=== PATIENT | male | born 1960 | race Caucasian/White ===

== ENCOUNTER 2020-05-10 05:45 | Day surgery (SDC) | payer OTHER ==
[2020-05-02 15:17] LABS: BASOPHILS # (AUTO) 0.1 X10'3 (0-0.2); EOSINOPHILS # (AUTO) 0.2 X10'3 (0-0.9); EOSINOPHILS % (AUTO) 2.9 % (0-6); LYMPHOCYTES # (AUTO) 1.6 X10'3 (1.1-4.8); LYMPHOCYTES % (AUTO) 24.9 % (21-51); MEAN CORPUSCULAR HGB CONC 34.2 g/dL (33.0-36.5); MEAN CORPUSCULAR VOLUME 96.3 FL (78-98); MEAN PLATELET VOLUME 8.3 FL (7.4-10.4); MONOCYTES # (AUTO) 0.8 X10'3 (0-0.9); MONOCYTES % (AUTO) 11.7 % (2-12); NEUTROPHILS # (AUTO) 3.9 X10'3 (1.8-7.7); NEUTROPHILS % (AUTO) 59.5 % (42-75); PRE OP HEMATOCRIT 46.8 % (42.0-52.0); PRE OP PLATELET COUNT 272 X10'3 (140-440); RED BLOOD COUNT 4.86 X10'6 (4.70-6.10); RED CELL DISTRIBUTION WIDTH 13.4 % (11.5-14.5)
[2020-05-02 15:27] LABS: ALBUMIN 3.8 G/DL (3.4-5.0); ALBUMIN/GLOBULIN RATIO 0.9 (1.1-1.5); ALKALINE PHOSPHATASE 66 IU/L (46-116); BLOOD UREA NITROGEN 18 MG/DL (7-18); CALCIUM 9.4 MG/DL (8.5-10.1); CHLORIDE 104 MMOL/L (99-107); CREATININE 1.06 MG/DL (0.60-1.10); PRE OP ALT 70 U/L (30-65); PRE OP ANION GAP 10 (8-16); PRE OP AST 62 U/L (10-37); PRE OP BILIRUB, TOTAL 0.9 MG/DL (0.0-1.0); PRE OP GLUCOSE 108 MG/DL (70-104); PRE OP SODIUM 140 MMOL/L (135-145); TOTAL CARBON DIOXIDE 26.3 MMOL/L (24-32); TOTAL PROTEIN 7.9 G/DL (6.4-8.2); eGFR 72 ML/MIN
[2020-05-02 15:30] LABS: PRE OP POTASSIUM 3.6 MMOL/L (3.4-5.1)
[2020-05-10] VITALS (19 sets, daily range): BP systolic 92–179; BP diastolic 60–111
[~2020-05-10] VITALS: Ht 157.5 cm; Wt 62.4 kg
[~2020-05-10 05:45] MED LIST: ACET-1008 PO; AMLO2.5T4 PO; ASPI-612 PO; ATOR80TA PO; CARV25TA2 PO; DOCUMENT DATE & TIME OF BETA-BLOCKER PO ONE; GARL1000 PO; GLUC100017 PO; HYDR-4069 PO; HYDR50TA3 PO; MULT-1074 PO; OMEG-166 PO; TUMERIC PO; UBID50TA3 PO; VANCOMYCIN INJ 1000 MG in NORMAL SALINE 250ml IV.SOLN IV ONE; ceFAZolin 2gm in dextrose, iso 50 ML IV ONE; famotidine 20mg tablet PO ONE
[2020-05-10] MEDS ORDERED: tranexamic acid 650mg tablet PO ONE (06:00)
[2020-05-10] MEDS: ringers solution, lacted 1,000 ML IV SCH ×2 (06:23→12:32)
[2020-05-10] MEDS ORDERED: ROPIVAcaine 0.5% (5mg/ml) 30ml vial ONE ×2 (06:36→08:46)
[2020-05-10] MEDS ORDERED: ketorolac trometh. 30mg/ml inj. ONE (06:36)
[2020-05-10] MEDS ORDERED: tetracaine 1% (10mg/ml) pres. free inj. ONE (07:13)
[2020-05-10] MEDS ORDERED: morphine /PF 1mg/ml 10ml inj. ONE (07:14)
[2020-05-10] MEDS ORDERED: MIDAZolam 1mg/ml 10ml vial ONE (07:14)
[2020-05-10] MEDS ORDERED: propofol inj 20 ML IV ONE ×2 (07:26)
[2020-05-10] MEDS ORDERED: ondansetron/PF 4mg/2ml inj IV PRN ×2 (07:50)
[2020-05-10] MEDS ORDERED: ringers solution, lacted 1,000 ML IV SCH (07:50)
[2020-05-10] MEDS ORDERED: morphine 4 MG/ML inj SYRINge IV PRN (07:50)
[2020-05-10] MEDS ORDERED: labetalol 20mg/4ml (5mg/ml) syringe IV PRN (07:50)
[2020-05-10] MEDS ORDERED: ROPIVAcaine 0.2%/PF PUMP/bolus 550 ML ADDCANAL SCH (07:50)
[2020-05-10] MEDS ORDERED: ROPIVAcaine 0.2% (10 MG/5 ML) BOLUS INJECTION ADDCANAL PRN (07:50)
[2020-05-10] MEDS ORDERED: fentaNYL/PF 50MCG/1 ML 2ML syringe IV PRN ×2 (07:50)
[2020-05-10] MEDS ORDERED: hydrALAZINE 20mg/ml inj. IV PRN (07:50)
[2020-05-10] MEDS ORDERED: diphenhydrAMINE 50 mg/ml inj IV PRN (07:50)
[2020-05-10] MEDS ORDERED: morphine 2 MG/ML inj. syringe IV PRN (07:50)
[2020-05-10] MEDS ORDERED: bisacodyl 10mg suppository rectal RC PRN (09:55)
[2020-05-10] MEDS ORDERED: HYDROmorphone inj. 0.5 MG/0.5 ML DISP.SYRIN IV PRN (09:55)
[2020-05-10] MEDS ORDERED: HYDROmorphone 1 mg/ml syringe IV PRN (09:55)
[2020-05-10] MEDS ORDERED: acetaminophen 325mg tablet PO PRN (09:55)
[2020-05-10] MEDS ORDERED: magnesium hydroxide 30ml (MOM) UD suspension PO PRN (09:55)
[2020-05-10] MEDS ORDERED: oxyCODONE IR 5mg (immed. release) tablet PO PRN ×2 (09:55)
[2020-05-10] MEDS ORDERED: diphenhydrAMINE 25mg capsule PO PRN ×2 (09:55)
--- NOTE | 2020-05-10 10:00 | NUR ---
ADMITTED TO PACU FROM OR ACCOMPANIED BY ANESTHESIA. INTIAL PHYSICAL ASSESSMENT DONE AND RECORDED. REPORT RECEIVED FROM ANESTHESIA.
--- NOTE | 2020-05-10 11:15 | NUR ---
RECEIVED REPORT FROM ZENY BAILEY. AWAITING PATIENT ARRIVAL.
--- NOTE | 2020-05-10 11:28 | NUR ---
PACU DISCHARGE CRITERIA MET, REPORT GIVEN TO FLOOR. DENIES PAIN OR DISCOMFORT, TRANSFERRED TO ROOM IN STABLE GOOD CONDITION.
--- NOTE | 2020-05-10 12:15 | NUR ---
Patient arrived to floor. VSS. no complaints.
[2020-05-10] MEDS: ondansetron/PF 4mg/2ml inj IV PRN ×2 (13:50→20:52)
[2020-05-10] MEDS: ceFAZolin/D5W- 1GM premix 50 ML IV SCH (15:34)
[2020-05-10] MEDS: potassium cl 20mEq in 1/2 NS 1,000 ML IV SCH ×2 (15:35→17:55)
[2020-05-10] MEDS: acetaminophen 325mg tablet PO SCH ×2 (15:36→20:56)
[2020-05-10] MEDS: hydrALAZINE 25 MG tablet PO SCH (15:37)
--- NOTE | 2020-05-10 18:19 | NUR ---
Problems reprioritized. Patient report given, questions answered & plan of care reviewed with ZENY Velazquez.
[2020-05-10] MEDS ORDERED: vancomycin/NS 1 GM ADD-VANTAGE 250 ML IV SCH (20:00)
[2020-05-10] MEDS: carVEDilol 12.5mg tablet PO SCH (20:57)
[2020-05-10] MEDS ORDERED: sennosides 8.6mg tablet PO SCH (21:00)
[2020-05-11] VITALS: BP 122/80
[2020-05-11] MEDS: potassium cl 20mEq in 1/2 NS 1,000 ML IV SCH ×2 (00:31→08:43)
[2020-05-11] MEDS: ceFAZolin/D5W- 1GM premix 50 ML IV SCH (00:33)
[2020-05-11] MEDS: hydrALAZINE 25 MG tablet PO SCH ×2 (00:34→08:35)
[2020-05-11] MEDS: acetaminophen 325mg tablet PO SCH ×2 (02:00→08:32)
[2020-05-11 04:38] VITALS: BP 123/81
[2020-05-11 06:19] LABS: BASOPHILS % (AUTO) 0.5 % (0-1); EOSINOPHILS # (AUTO) 0.2 X10'3 (0-0.9); EOSINOPHILS % (AUTO) 2.3 % (0-6); HEMATOCRIT 33.4 % (42.0-52.0); HEMOGLOBIN 11.7 g/dl (14.0-17.9); LYMPHOCYTES # (AUTO) 1.5 X10'3 (1.1-4.8); LYMPHOCYTES % (AUTO) 22.1 % (21-51); MEAN CORPUSCULAR HEMOGLOBIN 33.7 PG (27.0-31.0); MEAN CORPUSCULAR HGB CONC 34.9 g/dL (33.0-36.5); MEAN CORPUSCULAR VOLUME 96.7 FL (78-98); MEAN PLATELET VOLUME 9.1 FL (7.4-10.4); MONOCYTES # (AUTO) 0.8 X10'3 (0-0.9); NEUTROPHILS # (AUTO) 4.3 X10'3 (1.8-7.7); NEUTROPHILS % (AUTO) 63.1 % (42-75); PLATELET COUNT 184 X10'3 (140-440); RED BLOOD COUNT 3.46 X10'6 (4.70-6.10); RED CELL DISTRIBUTION WIDTH 13.3 % (11.5-14.5); WHITE BLOOD COUNT 6.8 X10'3 (4.5-11.0)
[2020-05-11 06:39] LABS: ANION GAP 10 (8-16); CHLORIDE 105 MMOL/L (99-107); POTASSIUM 3.8 MMOL/L (3.5-5.1); SODIUM 138 MMOL/L (135-145); TOTAL CARBON DIOXIDE 22.7 MMOL/L (24-32)
--- NOTE | 2020-05-11 06:41 | NUR ---
Problems reprioritized. Patient report given, questions answered & plan of care reviewed with Tiff MOURA.
--- NOTE | 2020-05-11 06:50 | NUR ---
Patient in room [facility]. I have received report from juan manuel MOURA and had the opportunity to ask questions and assume patient care.
[2020-05-11 08:00] VITALS: BP 161/69
[2020-05-11] MEDS ORDERED: amLODIPine 2.5mg tablet PO SCH (08:00)
[2020-05-11] MEDS ORDERED: atorvastatin 20mg tablet PO SCH (08:00)
[2020-05-11] MEDS ORDERED: HYDROchlorothiazide 25mg tablet PO SCH (08:00)
[2020-05-11] MEDS ORDERED: aspirin 325mg tablet PO SCH (08:30)
[2020-05-11 08:35] VITALS: BP_SYST 161
[2020-05-11] MEDS: carVEDilol 12.5mg tablet PO SCH (08:35)
[2020-05-11] MEDS ORDERED: ASPI-1 PO (11:23)
--- NOTE | 2020-05-11 12:40 | NUR ---
patient worked with PT able to ambulate checked off by PT for discharge see note. Seen By Dillon DUTTA. All DC instructions given to patient . Much time spent with patient reinforcing Physical Therapy instructions. Patient DC with ROSENDO flores. Dc home via private car with spouse. dressing intact no further bleeding this am. To follow up with Poonam Ahmadi.
[2020-05-12] MEDS ORDERED: acetaminophen 325mg tablet PO PRN (09:55)
== END 2020-05-11 12:03 | disposition home or self-care (01) ==
LOC: PAS 05:45 → SUR 3N 09:51 → UNDOADMIN 09:51 → PAS 05-11 12:03 → UNDODISIN 05-11 12:28
PROVIDERS: ATTEND Orthopaedic Surgery
DX: M17.32 Unilateral post-traumatic osteoarthritis, left knee (principal); Z79.899 Other long term (current) drug therapy; Z79.82 Long term (current) use of aspirin; Z88.0 Allergy status to penicillin; Z98.890 Other specified postprocedural states; Z72.89 Other problems related to lifestyle; I10 Essential (primary) hypertension; E78.5 Hyperlipidemia, unspecified
CPT/HCPCS: 20985; 27447; 36415; 64448; 76937; 80051; 80053; 82948; 85025; 87081; 87635; 93005; 97110; 97116; 97162; 97530; C1713; C1758; C1776; J0690; J1885; J2250; J2270; J2405; J2704; J2795; J3370; J7120; A4215; A7000; G0378; J3480